=== PATIENT | female | born 1980 | race Caucasian/White ===

== ENCOUNTER 2017-06-19 08:25 | Emergency (ER) | payer OTHER ==
[~2017-06-19] VITALS: Ht 152.4 cm; Wt 71.8 kg
[2017-06-19 08:27] VITALS: TEMP 36.4; Ht 152.4 cm; Wt 71.8 kg
--- NOTE | 2017-06-19 08:56 | EMERGENCY ROOM VISIT NOTE ---
History First contact with patient: 08:32 Chief Complaint: LEG PAIN,LEG INJURY Stated Complaint: PAIN IN LEFT CALF History of Present Illness The patient is a 37 year old female who presents to the Emergency Room via private vehicle "pain in left calf". The patient states that she recently flew back from a trip to [place] with complaints of on Thursday. She states that she then flew again on Thursday and landed back to [facility]. She states and there was a long drive home because of the weather. With all of the prolonged immobilization she notes that Thursday evening she felt like a charley horse in the posterior left calf. She states that this progressed to be more intense Thursday morning and has been the same since then. She states that her father was recently diagnosed with a PE, and with her recent prolonged immobilization is concerned about a DVT. She did see a family doctor yesterday who did calf measurements but notes no ultrasound was performed and would prefer that be done today. I believe that is reasonable. She denies any chest pain, shortness of breath, history of PE, hemoptysis, or increase of exercise habits. Review of Systems A complete 6-point Review of Systems was discussed with the patient, with pertinent positives and negatives listed in the History of Present Illness. All remaining Review of Systems questions can be considered negative unless otherwise specified. Past Medical/Surgical History No pertinent Family History Father with PE Social History Smoking Status: Never Smoker Pt. lives locally Current/Historical Medications Scheduled Apixaban (Eliquis), 5 MG PO DIRECTED Rivaroxaban (Xarelto), 1 TAB PO BID Physical Exam Vital Signs Date Time Temp Pulse Resp B/P (MAP) Pulse Ox O2 Delivery O2 Flow Rate FiO2 06/19/17 13:14 77 18 129/81 98 Room Air 06/19/17 10:17 54 18 107/63 100 Room Air 06/19/17 08:27 36.4 68 18 138/81 97 Room Air Physical Exam VITAL SIGNS - Vital signs and nursing notes were reviewed. Stable. GENERAL - 37-year-old female appearing her stated age who is in no acute distress. Communicates well with provider and answers questions appropriately. SKIN - Without rashes. No petechial rashes. Skin over L calf unremarkable. HEAD - NC/AT. EYES - PERRL with EOMI bilaterally. Sclera anicteric. EARS - No deformities of external structures noted on gross examination bilaterally. NOSE - Midline and without cyanosis. No epistaxis or purulent drainage noted. MOUTH/OROPHARYNX - Without perioral cyanosis. LUNGS - Chest wall symmetric without accessory muscle use, intercostals retractions, or central cyanosis. Normal vesicular breath sounds CTA B/L. No wheezes, rales, or rhonchi appreciated. CARDIAC - RRR with S1/S2. No murmur, rubs, or gallops appreciated. EXTREMITIES - No clubbing or peripheral cyanosis. No pretibial edema present. Excellent left distal lower extremity pulses. There is left calf tenderness. Positive Homans sign. +5/5 strength noted in UE/LE bilaterally. Medical Decision & Procedures ER Provider Diagnostic Interpretation: L VENOUS DOPP LOWER EXT UNILAT HISTORY: 37 years-old Female L lower leg pain, recent prolonged immobilization acute left lower leg pain COMPARISON: None available TECHNIQUE: Multiple real-time static images of the left lower extremity deep venous structures were obtained assessing grayscale appearance, color and spectral flow FINDINGS: The common femoral, superficial femoral, popliteal, greater saphenous, peroneal and anterior tibial veins are patent. Occlusive deep venous thrombosis involves the soleus veins of the proximal to mid calf. IMPRESSION: 1. No supra-popliteal deep venous thrombosis identified. 2. Occlusive thrombus involves the soleus veins of the calf. The above report was generated using voice recognition software. It may contain grammatical, syntax or spelling errors. Electronically signed by: Des Hull M.D. 06/19/2017 9:26 AM Dictated Date/Time: 06/19/2017 9:21 AM Laboratory Results 06/19/17 09:45 Red Blood Count 5.01, Mean Corpuscular Volume 84.0, Mean Corpuscular Hemoglobin 30.7, Mean Corpuscular Hemoglobin Concent 36.6, Mean Platelet Volume 8.5, Neutrophils (%) (Auto) 66.5, Lymphocytes (%) (Auto) 24.5, Monocytes (%) (Auto) 7.2, Eosinophils (%) (Auto) 1.2, Basophils (%) (Auto) 0.3, Neutrophils # (Auto) 4.80, Lymphocytes # (Auto) 1.77, Monocytes # (Auto) 0.52, Eosinophils # (Auto) 0.09, Basophils # (Auto) 0.02 06/19/17 09:45 Test 06/19/17 09:45 White Blood Count 7.22 K/uL (4.8-10.8) Red Blood Count 5.01 M/uL (4.2-5.4) Hemoglobin 15.4 g/dL (12.0-16.0) Hematocrit 42.1 % (37-47) Mean Corpuscular Volume 84.0 fL (80-100) Mean Corpuscular Hemoglobin 30.7 pg (25-34) Mean Corpuscular Hemoglobin Concent 36.6 g/dl (32-36) Platelet Count 294 K/uL (130-400) Mean Platelet Volume 8.5 fL (7.4-10.4) Neutrophils (%) (Auto) 66.5 % Lymphocytes (%) (Auto) 24.5 % Monocytes (%) (Auto) 7.2 % Eosinophils (%) (Auto) 1.2 % Basophils (%) (Auto) 0.3 % Neutrophils # (Auto) 4.80 K/uL (1.4-6.5) Lymphocytes # (Auto) 1.77 K/uL (1.2-3.4) Monocytes # (Auto) 0.52 K/uL (0.11-0.59) Eosinophils # (Auto) 0.09 K/uL (0-0.5) Basophils # (Auto) 0.02 K/uL (0-0.2) RDW Standard Deviation 38.2 fL (36.4-46.3) RDW Coefficient of Variation 12.7 % (11.5-14.5) Immature Granulocyte % (Auto) 0.3 % Immature Granulocyte # (Auto) 0.02 K/uL (0.00-0.02) Prothrombin Time 9.9 SECONDS (9.0-12.0) Prothromb Time International Ratio 0.9 (0.9-1.1) Activated Partial Thromboplast Time 22.5 SECONDS (21.0-31.0) Partial Thromboplastin Ratio 0.9 Anion Gap 6.0 mmol/L (3-11) Est Creatinine Clear Calc Drug Dose 98.7 ml/min Estimated GFR () 128.9 Estimated GFR (Non- 111.2 BUN/Creatinine Ratio 13.2 (10-20) Calcium Level 9.1 mg/dl (8.5-10.1) Total Bilirubin 0.5 mg/dl (0.2-1) Aspartate Amino Transf (AST/SGOT) 21 U/L (15-37) Alanine Aminotransferase (ALT/SGPT) 42 U/L (12-78) Alkaline Phosphatase 79 U/L (45-117) Total Protein 7.5 gm/dl (6.4-8.2) Albumin 3.7 gm/dl (3.4-5.0) Globulin 3.8 gm/dl (2.5-4.0) Albumin/Globulin Ratio 1.0 (0.9-2) Human Chorionic Gonadotropin, Qual NEG (NEG) Medical Decision Patient was seen and evaluated as above in room B12. Review was performed of nursing notes and vital signs. After obtaining a thorough history and physical examination the above work up was performed. US positive for DVT in 1 of the calf veins. I called Dr. Inessa Pak, hematology specilist. We discussed the case. It was recommended to coagulate. He was recommended to use Xarelto. I did discuss with the attending, and subsequently the patient. I also enlisted the help of our in-house pharmacist. Unfortunately the financial burden of the Xarelto has limited use of this. The patient prefers to use 1 of the new medications without need for monitoring or caution with leafy green vegetables. She was then given Eliquis. The patient was educated upon this. She is to call the family doctor to schedule follow-up. She was given a 30 day supply. Her education was had with the patient regarding this medication and management of the DVT via myself as well as the pharmacist. Patient was informed that she is to go directly to the pharmacy to pickup driver her first dose, as a 30 day supply need to be prescribed for this to be covered, and the patient was informed that if she is unable to receive this tonight she is to return here. There is no evidence of PE on exam. No chest pain or shortness of breath. She was educated upon the symptoms and to return. The patient was educated upon management, had questions answered prior to discharge, and was discharged home in good condition. Case was discussed with the attending physician. In the evaluation and treatment of this patient, the following differential diagnoses were considered: DVT, hematoma, fracture, sprain, rhabdomyolysis, among others. Impression Primary Impression: Leg pain, left Additional Impression: DVT (deep venous thrombosis) Departure Information Dispostion Home / Self-Care Condition GOOD Prescriptions Apixaban (ELIQUIS) 5 Mg Tab 5 MG PO DIRECTED for 30 Days, #74 TAB 2 tabs po BID x 7 days, then 1 tab po BID Prov: Isac Daniels PA-C 06/19/17 Rivaroxaban (Xarelto) 15 Mg Tab 1 TAB PO BID for 21 Days, #42 TABS 0 Refills Prov: Isac Daniels PA-C 06/19/17 Referrals Raul Johnson M.D. (PCP) Patient Instructions My [facility] Additional Instructions You have been treated in the Emergency Department for leg pain. Eliquis 5mg tabets. Start with 2 tablets every 12 hours for 7 days then transition to one tablet every 12 hours for the remainder. I have given you a 30 day supply. This should be written by your family doctor. Please contact them as soon as possible to arrange follow-up so that there is continued care and prescriptions for your eliquis. Please do not allow this medication to run out, it is important that if you cannot see you family doctor please call or return. Please take with food. Limit alcohol with eliquis If you have signs/symptoms of bleeding please return. If you have dark tar like stools or other odd symptoms please return. If your leg is discolored please return If you have trouble breathing please return For pain control, you can use the following [id number] medicines: - Regular strength (325mg/tab) Tylenol (acetaminophen) 2 tabs every 4-6 hours as needed. Do not exceed 12 tablets in a 24 hour period. Avoid taking more than 3 grams (3000 mg) of Tylenol per day. This includes any other sources of acetaminophen you may take on a regular basis. Please no aspirin, aleve, ibuprofen, advil, naproxen, etc with this medication Return to the Emergency Department if your current symptoms worsen despite treatment course outlined above. Problem Qualifiers
--- NOTE | 2017-06-19 09:27 | DIAGNOSTIC IMAGING REPORT ---
L VENOUS DOPP LOWER EXT UNILAT HISTORY: 37 years-old Female L lower leg pain, recent prolonged immobilization acute left lower leg pain COMPARISON: None available TECHNIQUE: Multiple real-time static images of the left lower extremity deep venous structures were obtained assessing grayscale appearance, color and spectral flow FINDINGS: The common femoral, superficial femoral, popliteal, greater saphenous, peroneal and anterior tibial veins are patent. Occlusive deep venous thrombosis involves the soleus veins of the proximal to mid calf. IMPRESSION: 1. No supra-popliteal deep venous thrombosis identified. 2. Occlusive thrombus involves the soleus veins of the calf. The above report was generated using voice recognition software. It may contain grammatical, syntax or spelling errors. Electronically signed by: Des Hull M.D. 06/19/2017 9:26 AM Dictated Date/Time: 06/19/2017 9:21 AM
[2017-06-19 09:57] LABS: BASO % 0.3 %; BASO ABS # 0.02 K/uL (0-0.2); EOS % 1.2 %; EOS ABS # 0.09 K/uL (0-0.5); HEMATOCRIT 42.1 % (37-47); HEMOGLOBIN 15.4 g/dL (12.0-16.0); IG# 0.02 K/uL (0.00-0.02); LYMPH % 24.5 %; LYMPH ABS # 1.77 K/uL (1.2-3.4); MEAN CORPUSCULAR HEMOGLOBIN 30.7 pg (25-34); MEAN CORPUSCULAR HGB CONC 36.6 g/dl (32-36); MEAN PLATELET VOLUME 8.5 fL (7.4-10.4); MONO % 7.2 %; MONO ABS # 0.52 K/uL (0.11-0.59); NEUT % 66.5 %; PLATELET COUNT 294 K/uL (130-400); RED CELL DISTRIBUTION WIDTH CV 12.7 % (11.5-14.5); RED CELL DISTRIBUTION WIDTH SD 38.2 fL (36.4-46.3); WHITE BLOOD COUNT 7.22 K/uL (4.8-10.8)
[2017-06-19 10:05] LABS: INR 0.9 (0.9-1.1); PTT PATIENT 22.5 SECONDS (21.0-31.0)
[2017-06-19 10:13] LABS: ALBUMIN 3.7 gm/dl (3.4-5.0); CALCIUM 9.1 mg/dl (8.5-10.1); CREATININE 0.69 mg/dl (0.60-1.20); POTASSIUM 3.7 mmol/L (3.5-5.1)
[2017-06-19 10:16] LABS: TOTAL PROTEIN 7.5 gm/dl (6.4-8.2)
[2017-06-19] MEDS ORDERED: XRL15 PO (11:07)
[2017-06-19] MEDS ORDERED: APIX1TAB3 PO (12:45)
[2017-06-19 13:14] VITALS: BP 129/81; PULSE 77; O2SAT 98
--- NOTE | 2017-06-19 18:45 | Pharmacy Progress Note ---
ED Pharmacist Counseling Note Date of Service: Jun 19, 2017. New-onset provoked DVT. I spent 20 minutes with the patient in addition to about 30 minutes of coordination/determination of outpatient co-pay amounts. Originally Xarelto was prescribed, however co-pay cards at both [facility] and at outpatient pharmacy were rejected (per Zofia, [facility] pharmacist). Patient's co-pay would have been ~$500/month. Spoke colton Armijo at [facility] [place] - gave verbal to cancel prescription for Xarelto (PAWEL Daniels PA-C). Was then prescribed exactly 30 day supply of apixaban, and the apixaban co-pay card was accepted (per Zofia, [facility] pharmacist) - patient will therefore have a $0 for this month only. Co-pay will then increase to ~$500/month. Discussed this with patient who is aware. She may then decide to switch to warfarin at that time if further co-pay cards cannot be obtained / used. Discussed minimum length of therapy is 3 months, but that determination of when to discontinue anticoagulation will be at the discretion of her PCP. Emphasized that patient will need to decrease dose of apixaban after 7 days and that she must be diligent about making sure this transition occurs at the correct time (note: starter pack not available at patient's pharmacy or that would have been prescribed). Patient acknowledged understanding. Discussed that co-pay card that was used would only work if *exactly* a 30 day supply was prescribed. Patient aware that 1st dose was not given in the ED. Patient noted intent to go immediately to outpatient pharmacy and take 1st dose immediately after obtaining. No evidence of PE per Isac Daniels PA-C.
== END 2017-06-19 13:53 | disposition home or self-care (01) ==
LOC: C.EDB 08:28
DX: M79.662 Pain in left lower leg (principal); I82.402 Acute embolism and thrombosis of unspecified deep veins of left lower extremity; Z83.2 Family history of diseases of the blood and blood-forming organs and certain disorders involving the immune mechanism